=== PATIENT | male | born 1990 | race Two or more races ===

== ENCOUNTER 2020-01-09 14:28 | Emergency (ER) | payer MEDICARE, OTHER ==
[~2020-01-09] VITALS: Ht 170.2 cm; Wt 63.5 kg
[2020-01-09 14:34] VITALS: BP 128/81
--- NOTE | 2020-01-09 15:08 | NUR ---
RADIOLOGY AT BEDSIDE FOR L KNEE XRAY.
--- NOTE | 2020-01-09 15:47 | NUR ---
PT REFUSED JULI[facility]N WRAP. D/C IN STABLE CONDITION.
== END 2020-01-09 15:50 | disposition home or self-care (01) ==
LOC: ER 14:34
DX: M25.561 Pain in right knee (principal); Z98.890 Other specified postprocedural states
CPT/HCPCS: 73564-TC

== ENCOUNTER 2022-11-17 22:03 | Emergency (ER) | payer MEDICARE, OTHER ==
[~2022-11-17] VITALS: Ht 175.3 cm; Wt 90.7 kg
--- NOTE | 2022-11-17 22:16 | NUR ---
[place] c/o SOB since wednesday, hx of asthma, states feels like theres "water" in my lung. Pt A/Ox4. Tolerating R/A at 98%. Safety measures in place.
--- NOTE | 2022-11-17 22:26 | NUR ---
CALLED RT FOR REATHING TX
[2022-11-17] MEDS ORDERED: predniSONE 20 MG TABLET PO ONE (22:30)
[2022-11-17] MEDS ORDERED: IPRATROPIUM NEB FS 0.5 MG/2.5 ML AMPUL.NEB NEB ONE (22:30)
[2022-11-17] MEDS ORDERED: ALBUTEROL FS 2.5 MG/3 ML VIAL.NEB NEB ONE (22:30)
[2022-11-17] MEDS ORDERED: predniSONE 20 MG TABLET ONE (22:35)
--- NOTE | 2022-11-17 22:39 | NUR ---
COVID ANTIGEN AND INFLUENZA SWAB COLLECTED AND SENT TO LAB
[2022-11-17] MEDS ORDERED: ALBUTEROL FS 2.5 MG/3 ML VIAL.NEB ONE (22:44)
[2022-11-17] MEDS ORDERED: IPRATROPIUM NEB FS 0.5 MG/2.5 ML AMPUL.NEB ONE (22:44)
--- NOTE | 2022-11-17 22:48 | NUR ---
[employer] AT PT'S BEDSIDE
--- NOTE | 2022-11-17 23:30 | NUR ---
BREATHING TX DONE; PT SATTING 98% ON R/A
[2022-11-18] MEDS ORDERED: PRED20TA PO (00:32)
[2022-11-18] MEDS ORDERED: ALBU8.5H8 INH (00:32)
[2022-11-18] MEDS ORDERED: AZIT250T13 PO (00:32)
--- NOTE | 2022-11-18 00:41 | NUR ---
Patient discharged to home in stable condition. RX Written and verbal after care instructions given. Patient verbalizes understanding of instruction.
[2022-11-18 00:42] VITALS: BP 148/88
== END 2022-11-18 00:42 | disposition home or self-care (01) ==
LOC: ER 22:05
DX: J18.9 Pneumonia, unspecified organism (principal); J45.901 Unspecified asthma with (acute) exacerbation; Z91.013 Allergy to seafood; Z20.822 Contact with and (suspected) exposure to COVID-19
CPT/HCPCS: 99285; 71045; 87426; 87804 ×2; 94640 ×2; J7512; C9803